=== PATIENT | male | born 1935 | race Caucasian/White ===

== ENCOUNTER 2017-04-16 13:15 | Observation (INO) | payer OTHER ==
[~2017-04-16] VITALS: Ht 177.8 cm; Wt 105.6 kg
[~2017-04-16 13:15] MED LIST: ACETAMINOPHEN500 MG PO; AMARYL1 MG PO; BETHANECHOL CHL10 MG PO; CLONIDINE HCL0.1 MG PO; CYCLOBENZAPRINE10 MG PO; ENDOCET 5-3251 EACH PO; FERROUS SULFAT325 MG PO; HYDROCHLOROTHIA25 MG PO; LISINOPRIL20 MG PO; MAG-OXIDE400 MG PO; METOPROLOL TART50 MG PO; POTASSIUM CHLO10 ME3 PO; PRESERVISIO1 CAPSULE PO; PROTONIX40 MG PO; RESTORIL15 MG PO; SIMVASTATIN40 MG PO; TRIAMCINOLONE A30 GM TP; VENTOLIN HFA18 GM IH; VITAMIN B-12250 MCG PO; VITAMIN D-32000 UNI2 PO; VITAMIN E400 UNIT PO; XARELTO10 MG PO
[2017-04-16 14:15] LABS: HEMATOCRIT 47.4 % (38.0-50.0); MCH 29.3 PG (29.0-34.0); MCHC 33.8 G/DL (30.0-36.0); MCV 86.7 FL (86-99); MEAN PLAT.VOLUME 9.8 uM^3 (9.0-12.4); PLATELET COUNT 184 K/uL (156-360); RBC DIS.WIDTH-CV 13.2 % (11.8-14.6); RBC DIS.WIDTH-SD 41.6 % (39-53); RED BLOOD COUNT 5.47 M/uL (4.00-5.50); WHITE BLOOD COUNT 6.9 K/uL (4.1-10.2)
[2017-04-16 14:24] LABS: CHLORIDE 104 mEq/L (99-109); POTASSIUM 4.3 mEq/L (3.7-5.4); SODIUM 140 mEq/L (136-147)
[2017-04-16 14:26] LABS: GLUCOSE 88 mg/dL (70-99)
[2017-04-16 14:27] LABS: ANION GAP 9 MEQ/L (2-14)
[2017-04-16 14:30] LABS: GFR ESTIMATE (CALCULATED) 52 mL/min/; UREA NITROGEN (BUN) 25 mg/dL (9-23)
[2017-04-16 14:37] LABS: TROP-I INTERPRETATION NEGATIVE; TROPONIN-I < 0.01 ng/mL (0.0-0.30)
[2017-04-16] MEDS ORDERED: ALIGN4 MG PO (17:36)
[2017-04-16] MEDS ORDERED: LATANOPROST2.5 ML RIGHT EYE (17:36)
[2017-04-16] MEDS ORDERED: PRESERVISION T1 EACH PO (17:37)
[2017-04-16] MEDS ORDERED: NORVASC2.5 MG PO (17:37)
[2017-04-16] MEDS ORDERED: LOPRESSOR50 MG PO (17:38)
[2017-04-16] MEDS ORDERED: VITAMIN E100 UNIT PO (17:38)
[2017-04-16 17:39] LABS: TROP-I INTERPRETATION NEGATIVE; TROPONIN-I < 0.01 ng/mL (0.0-0.30)
[2017-04-16 19:58] VITALS: BP 193/96
[2017-04-16 23:49] VITALS: BP 163/84
[2017-04-17 01:54] LABS: TROP-I INTERPRETATION NEGATIVE; TROPONIN-I < 0.01 ng/mL (0.0-0.30)
[2017-04-17 04:25] VITALS: BP 112/57
[2017-04-17 07:23] LABS: TROP-I INTERPRETATION NEGATIVE; TROPONIN-I < 0.01 ng/mL (0.0-0.30)
[2017-04-17 09:11] VITALS: BP 187/117
[2017-04-17 11:41] VITALS: BP 142/82
== END 2017-04-17 12:05 | disposition home or self-care (01) ==
LOC: EME 13:15 → EDOF 17:37 → 5WEST 17:37
PROVIDERS: Hospitalist; Nurse Practitioner Family
DX: R07.89 Other chest pain (principal); E11.9 Type 2 diabetes mellitus without complications; E78.5 Hyperlipidemia, unspecified; I10 Essential (primary) hypertension; K21.9 Gastro-esophageal reflux disease without esophagitis; Z87.891 Personal history of nicotine dependence; Z95.5 Presence of coronary angioplasty implant and graft; I48.2 Chronic atrial fibrillation; I87.2 Venous insufficiency (chronic) (peripheral); I35.0 Nonrheumatic aortic (valve) stenosis
CPT/HCPCS: 71020; 80048; 83880; 84484; 85027; 93005; 99281; 99285; G0378

== ENCOUNTER 2018-01-26 14:50 | Emergency (ER) | payer OTHER ==
[~2018-01-26] VITALS: Ht 177.8 cm; Wt 107.7 kg
[~2018-01-26 14:50] MED LIST changes: +ALIGN4 MG PO; +LATANOPROST2.5 ML RIGHT EYE; +LOPRESSOR50 MG PO; +NORVASC2.5 MG PO; +PRESERVISION T1 EACH PO; +VITAMIN E100 UNIT PO
[2018-01-26 15:41] LABS: HEMOGLOBIN 14.9 G/DL (12.5-16.6); MCH 29.6 PG (29.0-34.0); MCHC 33.9 G/DL (30.0-36.0); MCV 87.5 FL (86-99); PLATELET COUNT 160 K/uL (156-360); RBC DIS.WIDTH-CV 13.2 % (11.8-14.6); RBC DIS.WIDTH-SD 41.5 % (39-53); RED BLOOD COUNT 5.03 M/uL (4.00-5.50); WHITE BLOOD COUNT 7.3 K/uL (4.1-10.2)
[2018-01-26 15:54] LABS: CHLORIDE 106 mEq/L (99-109); POTASSIUM 4.2 mEq/L (3.7-5.4); SODIUM 139 mEq/L (136-147)
[2018-01-26 15:55] LABS: GLUCOSE 84 mg/dL (70-99)
[2018-01-26 15:59] LABS: CREATININE 1.3 mg/dL (0.6-1.3); GFR ESTIMATE (CALCULATED) 56 mL/min/ (58.99-99999)
[2018-01-26 16:00] LABS: UREA NITROGEN (BUN) 32 mg/dL (9-23)
[2018-01-26 16:04] LABS: TROP-I INTERPRETATION NEGATIVE; TROPONIN-I 0.01 ng/mL (0.0-0.30)
[2018-01-26 16:48] LABS: INTER. NORMALIZED RATIO 1.7
[2018-01-26 19:18] LABS: TROP-I INTERPRETATION NEGATIVE; TROPONIN-I 0.01 ng/mL (0.0-0.30)
[2018-01-26 19:29] VITALS: BP 147/78
== END 2018-01-26 19:34 | disposition home or self-care (01) ==
LOC: EME 14:50
PROVIDERS: Physician Assistant
DX: R07.9 Chest pain, unspecified (principal); R06.00 Dyspnea, unspecified; Z95.2 Presence of prosthetic heart valve; Z98.890 Other specified postprocedural states; E78.5 Hyperlipidemia, unspecified; K21.9 Gastro-esophageal reflux disease without esophagitis; E11.22 Type 2 diabetes mellitus with diabetic chronic kidney disease; I12.9 Hypertensive chronic kidney disease with stage 1 through stage 4 chronic kidney disease, or unspecified chronic kidney disease; N18.9 Chronic kidney disease, unspecified; Z96.651 Presence of right artificial knee joint; Z88.0 Allergy status to penicillin; Z88.5 Allergy status to narcotic agent; Z87.891 Personal history of nicotine dependence
CPT/HCPCS: 71046; 80048; 84484; 85027; 85610; 85730; 93005; 99281; 99283